=== PATIENT | female | born 1955 | race Caucasian/White ===

== ENCOUNTER → 2017-03-09 | Day surgery (SDC) | payer OTHER ==
[~2017-03-09] MED LIST: ACETAMINOPHEN 1000 MG/100 ML 100 ML IV ONE; BUPIVACAINE/EPINEPHRINE 0.25% 50 ML VIAL ONE; DEXAMETHASONE SOD PHOS 4 MG/ML VIAL IV ONE; HYDROmorphone HCL PF 2 MG/ML VIAL ONE; LACTATED RINGER'S 1000 ML INJ 1,000 ML ONE; LIDOCAINE 1.5%/EPINEPHrine 1:200,000 PF SOLN 30 ML AMP ONE; LIDOCAINE HCL 1% 50 ML VIAL ONE; LIDOCAINE HCL 1% PF 30 ML VIAL ONE; LIDOCAINE HCL 1% PF 5 ML AMPULE OTHER ONE; MIDAZOLAM HCL 2 MG/2 ML VIAL ONE; ONDANSETRON HCL 4 MG/2 ML VIAL IV PUSH ONE; PROPOFOL 200 MG/20 ML AMP IV ONE; ceFAZolin INJ 1,000 MG VIAL ONE
--- NOTE | 2017-03-09 09:31 | TN ---
cc: SRIDHAR LEMOS M.D. 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 PROCEDURE Lipoplasty of posterior and dorsal arms, lipo injection of the left arm area and face. SURGEON Sridhar Lemos. ANESTHESIA LMA general. TOTAL I'S AND O'S 1245 in, 1075 out. Total suction out 500 out from the right and the left. On the face we suctioned 75 out. Injection to mostly in the neck area. Injection in the left arm was 80 cc and the perifacial 30 cc, 15 cc per side. COMPLICATIONS None. DETAILS OF PROCEDURE The patient was properly consented, marked and properly anesthetized. The skin was sterilized with Betadine solution and sterile draping applied. The procedure started by tumescing the arms utilizing strategically placed puncture wounds done utilizing an 11 blade which were thereafter closed utilizing 5-0 chromic suture and Steri-Strips. After the tumescent fluid was carried out, allowed 10 minutes for vasoconstriction, suction-assisted lipoplasty was carried out utilizing a 2.5 mm cannula. The contralateral side was approached exactly in the same manner. The fat was properly decanted, washed and transferred to a smaller syringe and blunt cannulas were utilized to inject the left arm and proximal forearm where the patient had some areas of dystrophy. A total of 80 cc were put in these areas. After that we were able to close and wrap the both arms with Rodolfo and Kiran. Our attention was directed to the face where puncture wounds were done, again with an 11 blade on the submental and ear lobule posterior where the tumescent was placed and the liposuction was carried out utilizing a 1.5 mm cannula. The puncture wounds were closed after that utilizing 5-0 chromic suture. At this point utilizing strategic puncture wounds in the sideburn area we strategically placed a total of 30 cc, 15 cc per side, of fat in the nasolabial fold marionette line and cheek area. Overall the patient tolerated the procedure well. A compression dressing was applied to the face and neck. She was awakened and extubated in the operating room, transferred back to the post-anesthesia care unit in stable condition. No complications were appreciated. The patient tolerated the procedure fairly well. MD SANDRO Smith/VISH /9:08 AM /9:15 AM
== END | disposition home or self-care (01) ==
LOC: ESDC 06:15
PROVIDERS: ATTEND Plastic Surgery
DX: Z41.1 Encounter for cosmetic surgery (principal)
CPT/HCPCS: 00300; 00400; 11954; 15876; 15878; J0131; J0690; J1100; J1170; J2250; J2405; J3010; J7120